=== PATIENT | male | born 1955 | race Caucasian/White ===

== ENCOUNTER 2018-06-09 21:34 | Emergency (ER) | payer SELFPAY ==
[2018-06-09 21:50] VITALS: O2SAT 97
[2018-06-09] MEDS ORDERED: Adacel Vial IM ONE ×2 (22:07→22:23)
[2018-06-09] MEDS ORDERED: Vancomycin 1GM/ Ns 250ML*** 1 GM/250 ML IVPB IV ONE (22:08)
[2018-06-09] MEDS ORDERED: Sodium Chloride 0.9% 1000 ML 1,000 ML IV SCH (22:15)
--- NOTE | 2018-06-09 22:15 | ERPHSYRPT ---
- History of Present Illness Time Seen by Provider: 06/09/18 22:04 Source: patient Exam Limitations: clinical condition Patient Subjective Stated Complaint: left hand swollen believed to have had a splinter in it Triage Nursing Assessment: Pt stated that he had been doing a remodel on a home and thinks he got a splinter or piece of plastic in his left pointer finger, finger and hand is now swollen and red, denies fever, painful with touch, doesn' t appear to be in any distress Physician History: PATIENT WITH A HISTORY OF HYPERTENSION, WHILE REMODELING HIS HOME SUSTAINED A PUNCTURE TO HIS LEFT INDEX FINGER, NO HAS INCREASING SWELLING, REDNESS OF LEFT INDEX FINGER, HAND EXTENDING TO LEFT WRIST. DENIES FEVER CHILLS. Occurred: days ago Method of Injury: other (PUNCTURE WOUND) Quality: aching Severity of Pain-Max: mild Severity of Pain-Current: mild Extremities Pain Location: wrist: left, hand: left, 2nd finger: left Modifying Factors: Improves With: nothing Associated Symptoms: none Allergies/Adverse Reactions: Penicillins Allergy (Verified 06/09/18 21:50) Home Medications: Ascorbic Acid 500 mg [Vitamin C 500 MG] 500 mg PO DAILY 06/09/18 [History] Cholecalciferol (Vitamin D3) [Vitamin D3] 2,000 unit PO DAILY 06/09/18 [History] Cyanocobalamin 100 Mcg [Vitamin B-12 100 Mcg] 100 mcg PO DAILY 06/09/18 [ History] Lisinopril 20 mg [Zestril 20 MG] 20 mg PO DAILY 06/09/18 [History] Lisinopril/Hydrochlorothiazide [Lisinopril-Hctz 10-12.5 mg Tab] 1 each PO DAILY 06/09/18 [History] Omeprazole 20 MG [Prilosec 20 mg] 20 mg PO DAILY 06/09/18 [History] Hx Tetanus, Diphtheria Vaccination/Date Given: No (unknown) - Review of Systems Constitutional: No Fever, No Chills Respiratory: No Cough, No Dyspnea Cardiac: No Chest Pain, No Edema, No Syncope Abdominal/Gastrointestinal: No Abdominal Pain, No Nausea, No Vomiting, No Diarrhea Genitourinary Symptoms: No Dysuria Musculoskeletal: Joint Redness, Joint Pain, Joint Swelling, No Back Pain, No Neck Pain Skin: Cellulitis, No Rash Neurological: No Dizziness, No Focal Weakness, No Sensory Changes Psychological: No Symptoms Endocrine: No Symptoms All Other Systems: Reviewed and Negative - Past Medical History Pertinent Past Medical History: Yes Cardiac History: Hypertension - Past Surgical History Past Surgical History: No - Social History Smoking Status: Never smoker Exposure to second hand smoke: No Drug Use: none Patient Lives Alone: No - Nursing Vital Signs Nursing Vital Signs: Initial Vital Signs Temperature 97.3 F 06/09/18 21:40 Pulse Rate 83 06/09/18 21:40 Blood Pressure 165/114 06/09/18 21:40 O2 Sat by Pulse Oximetry 97 06/09/18 21:40 Pain Scale Pain Intensity 3 - Physical Exam General Appearance: alert Hand Exam: infection (THERE IS A 1MM PUNCTURE HEALED WOUND MID PROXIMAL PHALANGX OF LEFT INDEX FINGER RADIAL ASPECT.), soft tissue tenderness, stiffness , swelling (SWELLING WITH ERYTHEMA LEFT INDEX FINGER DISTAL 3RD MIDDLE PHALANGX EXTENDS PROXIMAL TO WRIST, MARKED SWELLING LEFT HAND DORSUM PROXIMAL 1ST TO 3RD METACARPALS TO MCP JOINTS, MARKEDLY WARMTH, LEFT RADIAL PULSE 2+) DTR - Upper Extremity Exam: bicep (R): 2+, bicep (L): 2+, tricep (R): 2+, tricep (L): 2+ Neuro/Tendon Exam: normal sensation Mental Status Exam: alert, oriented x 3 SpO2 Interpretation: normal SpO2: 97 - Radiology Exams Left Hand X-ray Interpretation: Interpreted by me (SOFT TISSUE SWELLING WITHOUT EVIDENCE OF RADIO-OPAQUE FOREIGN BODY) Ordered Tests: Active Orders 24 hr Category Date Time Status IV Insertion STAT Care 06/09/18 22:19 Active HAND (MINIMUM 3 VIEWS) Stat Exams 06/09/18 22:25 Taken BLOOD CULTURE Stat Lab 06/09/18 22:30 Received BMP Stat Lab 06/09/18 22:15 Completed CBC W DIFF Stat Lab 06/09/18 22:15 Completed Medication Summary Generic Name Dose Route Start Last Admin Trade Name Freq PRN Reason Stop Dose Admin Sodium Chloride 1,000 mls @ 50 mls/hr 06/09/18 22:15 06/09/18 22:38 Sodium Chloride 0.9% 1000 Ml IV 07/09/18 22:14 50 mls/hr .Q20H SONA Administration Discontinued Medications Generic Name Dose Route Start Last Admin Trade Name Freq PRN Reason Stop Dose Admin Diphtheria/Tetanus/Acell Pertussis 0.5 ml 06/09/18 22:07 06/09/18 22:35 Adacel Vial IM 06/09/18 22:08 0.5 ml .ONCE ONE Administration Diphtheria/Tetanus/Acell Pertussis Confirm 06/09/18 22:23 Adacel Vial Administered 06/09/18 22:24 Dose 0.5 ml IM .STK-MED ONE Vancomycin HCl 1 gm in 250 mls @ 167 mls/hr 06/09/18 22:08 06/09/18 22:39 Vancomycin 1gm/ Ns 250ml IV 06/09/18 23:37 167 mls/hr STAT ONE Administration Vancomycin HCl Confirm 06/09/18 22:23 Vancomycin 1gm/ Ns 250ml Administered 06/09/18 22:24 Dose 250 mls @ ud IV .STK-MED ONE Lab/Rad Data: Laboratory Result Diagrams 06/09/18 22:15 06/09/18 22:15 Laboratory Results 06/09/18 06/09/18 Range/Units 22:15 22:15 WBC 10.9 H (4.0-10.5) K/mm3 RBC 4.98 (4.1-5.6) M/mm3 Hgb 15.2 (12.5-18.0) gm/dl Hct 43.1 (42-50) % MCV 86.5 (78-100) fl MCH 30.5 (26-32) pg MCHC 35.3 (32-36) g/dl RDW 13.4 (11.5-14.0) % Plt Count 189 (150-450) K/mm3 MPV 11.4 H (6-9.5) fl Gran % 66.1 H (36.0-66.0) % Eos # (Auto) 0.50 (0-0.5) Absolute Lymphs (auto) 2.34 (1.0-4.6) Absolute Monos (auto) 0.82 (0.0-1.3) Lymphocytes % 21.5 L (24.0-44.0) % Monocytes % 7.5 (0.0-12.0) % Eosinophils % 4.6 (0.00-5.0) % Basophils % 0.3 (0.0-0.4) % Absolute Granulocytes 7.21 H (1.4-6.9) Basophils # 0.03 (0-0.4) Sodium 141 (137-145) mmol/L Potassium 3.5 (3.5-5.1) mmol/L Chloride 101 (98-107) mmol/L Carbon Dioxide 31 H (22-30) mmol/L Anion Gap 12.9 (5-15) MEQ/L BUN 22 H (9-20) mg/dL Creatinine 1.03 (0.66-1.25) mg/dL Estimated GFR > 60.0 ML/MIN Glucose 119 H (74-106) mg/dL Calcium 9.9 (8.4-10.2) mg/dL - Progress Progress Note: 06/09/18 22:17 ADMINISTERED T-DAP 0.5ML IM, AFTER 2 SETS OF BLOOD CULTURES IV NORMAL SALINE 50ML/HR, VANCOMYCIN 1GM IVPB Counseled pt/family regarding: lab results, diagnosis, need for follow-up, rad results - Departure Time of Disposition: 00:15 Departure Disposition: Home Clinical Impression: CELLULITIS LEFT HAND Condition: Stable Critical Care Time: No Referrals: DOCTOR,NO FAMILY [Primary Care Provider] - Additional Instructions: MAINTAIN LEFT FOREARM SPLINT UNTIL EVALUATED BY ORTHOPEDIC OR HAND SURGEON NEXT WEEK. ELEVATE HAND WHILE SITTING OR SUPINE POSITION. ANTIBIOTIC CLINDAYMCIN 300MG EVERY 6 HOURS FOR 10 DAYS. NORCO 10/325 EVERY 6 HOURS FOR PAIN. WATCH FOR INCREASING SIGNS OF INFECTION, RED STREAKS ACROSS FOREARM TO ELBOW, ONSET OF FEVER, CHILLS AND INCREASING PAIN DISCOMFORT. CONSULT THE [facility] AT [address], , CALL OFFICE FOR APPOINTMENT IN [address] ALONSO ORTHOPEDIC SURGEON . OBTAIN A PRIMARY CARE PROVIDER FOR EVALUATION OF WOUND. RETURN TO EMERGENCY ROOM FOR PROBLEMS. HAVE THE SPLINT REMOVED AFTER 4 DAYS. Prescriptions: Hydrocodone/APAP 10/325 mg [[place] 10/325 MG Tablet] 1 tab PO Q4H PRN PRN # 15 tablet MDD 4 PRN Reason: Pain Clindamycin HCl 300 mg PO QID #40 capsule
[2018-06-09] MEDS ORDERED: Sodium Chloride 0.9% 1000 ML 1,000 ML ONE (22:22)
[2018-06-09] MEDS ORDERED: Vancomycin 1GM/ Ns 250ML*** 250 ML IV ONE (22:23)
[2018-06-09 22:32] LABS: BASOPHIL % 0.3 % (0.0-0.4); Basophil (Absolute #) 0.03 (0-0.4); Eosinophil % 4.6 % (0.00-5.0); Granulocyte Absolute (ANC) 7.21 (1.4-6.9); Granulocytes % 66.1 % (36.0-66.0); Hematocrit 43.1 % (42-50); Hemoglobin 15.2 gm/dl (12.5-18.0); Lymphocyte (Absolute #) 2.34 (1.0-4.6); Lymphocytes % 21.5 % (24.0-44.0); Mean Cell Volume 86.5 fl (78-100); Mean Corpuscular Hemoglobin 30.5 pg (26-32); Mean Corpuscular Hgb Concent. 35.3 g/dl (32-36); Mean Platelet Volume 11.4 fl (6-9.5); Monocyte (Absolute #) 0.82 (0.0-1.3); Monocytes % 7.5 % (0.0-12.0); Platelet Count 189 K/mm3 (150-450); Red Blood Count 4.98 M/mm3 (4.1-5.6); Red Cell Distribution Width 13.4 % (11.5-14.0); White Blood Count 10.9 K/mm3 (4.0-10.5)
[2018-06-09 22:46] LABS: ANION GAP 12.9 MEQ/L (5-15); BLOOD UREA NITROGEN 22 mg/dL (9-20); CHLORIDE 101 mmol/L (98-107); Calcium 9.9 mg/dL (8.4-10.2); Carbon Dioxide 31 mmol/L (22-30); Creatinine 1 1.03 mg/dL (0.66-1.25); Glucose 119 mg/dL (74-106); Potassium 3.5 mmol/L (3.5-5.1); SODIUM 141 mmol/L (137-145)
[2018-06-10] MEDS ORDERED: Norco 10/325 MG Tablet PO ONE (00:29)
[2018-06-10] MEDS ORDERED: Norco 10/325 MG Tablet ONE (00:30)
[2018-06-10 00:42] VITALS: BP 155/106; PULSE 80
--- NOTE | 2018-06-10 07:23 | XRAY ---
Indication: Pain and swelling. Possible 2nd finger foreign body. Comparison: None 3 views of the left hand demonstrates 2nd finger soft tissue swelling without radiopaque foreign body. No other bony, articular, or soft tissue abnormalities.
== END 2018-06-10 00:43 | disposition home or self-care (01) ==
LOC: ED 21:34
DX: L03.114 Cellulitis of left upper limb (principal); Z79.899 Other long term (current) drug therapy
CPT/HCPCS: 36000; 36415; 73130; 80048; 85025; 87040; 90471; 90715; 96360; 96361; 99284; J3370; A9270-GY

== ENCOUNTER 2022-08-27 16:19 | Observation (INO) | payer MEDICARE, OTHER ==
[2022-08-27] MEDS ORDERED: MORPHINE SULFATE 2 MG INJ IV ONE (17:00)
[2022-08-27] MEDS ORDERED: BABY ASPIRIN 81 MG CHEW PO ONE (17:00)
[2022-08-27] MEDS ORDERED: Zofran 4 MG/2 ML VIAL IV ONE (17:00)
[2022-08-27 17:06] LABS: Absolute Neutrophil Ct (ANC) 5.05 x10^3/uL (1.4-6.9); Basophil (Absolute #) 0.04 x10^3/uL (0-0.4); Eosinophil % 2.9 % (0.00-5.0); Eosinophil (Absolute #) 0.22 x10^3/uL (0-0.5); Hematocrit 43.7 % (42-50); Hemoglobin 14.8 g/dL (12.5-18.0); Lymphocytes % 23.8 % (24.0-44.0); Mean Cell Volume 88.3 fL (78-100); Mean Corpuscular Hemoglobin 29.9 pg (26-32); Mean Corpuscular Hgb Concent. 33.9 g/dL (32-36); Mean Platelet Volume 11.1 fL (7.5-11.0); Monocyte (Absolute #) 0.45 x10^3/uL (0.0-1.3); Monocytes % 5.9 % (0.0-12.0); Neutrophil % 66.8 % (36.0-66.0); Platelet Count 219 x10^3/uL (150-450); Red Blood Count 4.95 x10^6/uL (4.1-5.6); Red Cell Distribution Width 12.6 % (11.5-14.0); White Blood Count 7.6 x10^3/uL (4.0-10.5)
[2022-08-27] MEDS ORDERED: BABY ASPIRIN 81 MG CHEW ONE (17:14)
[2022-08-27] MEDS ORDERED: Zofran 4 MG/2 ML VIAL ONE (17:14)
[2022-08-27] MEDS ORDERED: MORPHINE SULFATE 2 MG INJ ONE (17:14)
[2022-08-27 17:26] LABS: ALBUMIN 4.5 g/dL (3.5-5.0); ALKALINE PHOSPHATASE 82 U/L (38-126); ANION GAP 7.5 MEQ/L (5-15); BLOOD UREA NITROGEN 18 mg/dL (9-20); CHLORIDE 104 mmol/L (98-107); CK-Creatinine Phosphokinase 92 U/L (55-170); Calcium 9.6 mg/dL (8.4-10.2); Carbon Dioxide 30 mmol/L (22-30); Creatinine 1 0.92 mg/dL (0.66-1.25); EST GLOMERULAR FILTRATION RATE > 60.0 ML/MIN; Glucose 109 mg/dL (74-106); NT PRO BNP 112 pg/mL (0-900); Potassium 3.5 mmol/L (3.5-5.1); SGOT/AST 22 U/L (17-59); SGPT/ALT 21 U/L (0-50); SODIUM 138 mmol/L (137-145); TROPONIN < 0.012 ng/mL (0.000-0.034); Total Protein 7.6 g/dL (6.3-8.2)
--- NOTE | 2022-08-27 17:26 | ERPHSYRPT ---
- History of Present Illness Time Seen by Provider: 08/27/22 16:33 Historian: patient Exam Limitations: no limitations Patient Subjective Stated Complaint: PT HERE FOR CHEST PRESSURE OFF AND ON FOR 2 WEEKS NOW, STATES WAS LOADING WINDOWS TODAY AND PAIN GOT WORSE, NO COUGH, OR FEVER, Triage Nursing Assessment: PT ALERT, WALKED IN, RESP EASY, SKIN W/D/P.FACE MASK IN PLACE, NO EDEMA NOTED, CHEST CLEAR Physician History: 66-year-old male with history of hypertension, GERD presented in the ER with chief complaint of substernal chest pressure off and on for 2 weeks with progressive worsening especially with exertion. Patient reports he gets short winded with couple of flight of stairs which he never had this problem before. Denies any cough congestion or sick contact. Reports having cardiac cath done almost 10 years ago which was negative. Denies tobacco use. Timing/Duration: week(s) (2), intermittent, worse Activities at Onset: activity Quality: dullness, pressure Location: substernal Chest Pain Radiation: no radiation Severity of Pain-Max: moderate Severity of Pain-Current: moderate Modifying Factors: Worsens With: exertion, movement Associated Symptoms: shortness of breath Prior Chest Pain/Cardiac Workup: no prior chest pain Nitro Today/Relief: no nitro taken today Aspirin Treatment Today: no aspirin today Allergies/Adverse Reactions: Penicillins Allergy (Verified 08/27/22 16:26) Home Medications: Ascorbic Acid 500 mg [Vitamin C 500 MG] 1,000 mg PO DAILY 06/09/18 [History] Cholecalciferol (Vitamin D3) [Vitamin D3] 5,000 unit PO DAILY 06/09/18 [History] Lisinopril 20 mg [Zestril 20 MG] 40 mg PO DAILY 06/09/18 [History] Omeprazole 20 MG [Prilosec 20 mg] 20 mg PO DAILY 06/09/18 [History] Hx Tetanus, Diphtheria Vaccination/Date Given: No (unknown) Hx Influenza Vaccination/Date Given: No Hx Pneumococcal Vaccination/Date Given: No Immunizations Up to Date: Yes Travel Risk - International Travel Have you traveled outside of the country in past 3 weeks: No - Coronavirus Screening Are you exhibiting any of the following symptoms?: No - Vaccine Status Have you recieved a Covid-19 vaccination: No - Review of Systems Constitutional: No Symptoms Eyes: No Symptoms Ears, Nose, & Throat: No Symptoms Respiratory: Dyspnea on Exertion (CEBALLOS) Cardiac: Chest Pain Abdominal/Gastrointestinal: No Symptoms Genitourinary Symptoms: No Symptoms Musculoskeletal: No Symptoms Skin: No Symptoms Neurological: No Symptoms Psychological: No Symptoms Endocrine: No Symptoms Hematologic/Lymphatic: No Symptoms Immunological/Allergic: No Symptoms - Past Medical History Pertinent Past Medical History: Yes Cardiac History: Hypertension - Past Surgical History Past Surgical History: No - Social History Smoking Status: Never smoker Exposure to second hand smoke: No Drug Use: none Patient Lives Alone: No - Nursing Vital Signs Nursing Vital Signs: Initial Vital Signs Temperature 97.2 F 08/27/22 16:31 Pulse Rate 77 08/27/22 16:31 Respiratory Rate 18 08/27/22 16:31 Blood Pressure 145/93 08/27/22 16:31 O2 Sat by Pulse Oximetry 99 08/27/22 16:31 Pain Scale Pain Intensity 4 - Physical Exam General Appearance: no apparent distress, alert Eye Exam: PERRL/EOMI Ears, Nose, Throat Exam: normal ENT inspection Neck Exam: normal inspection, full range of motion Respiratory Exam: normal breath sounds, lungs clear Cardiovascular Exam: regular rate/rhythm, normal heart sounds Gastrointestinal/Abdomen Exam: soft, No tenderness Back Exam: normal inspection, normal range of motion Extremity Exam: normal inspection, normal range of motion Neurologic Exam: alert, oriented x 3, cooperative Skin Exam: normal color SpO2 Interpretation: normal SpO2: 99 O2 Delivery: Room Air - Course EKG Interpreted by Me: RATE (77), Sinus Rhythm, NORMAL AXIS, Right Bundle Branch Block, Non-specific ST Changes Ordered Tests: Active Orders 24 hr Category Date Time Status Vp Account Director STAT Care 08/27/22 17:00 Active EKG-ER Only STAT Care 08/27/22 17:00 Active IV Insertion STAT Care 08/27/22 17:00 Active CHEST 1 VIEW (PORTABLE) Stat Exams 08/27/22 18:13 Completed CBC W DIFF Stat Lab 08/27/22 17:04 Completed CK-Creatinine Phosphokinase Stat Lab 08/27/22 17:04 Completed CMP Stat Lab 08/27/22 17:04 Completed NT PRO BNP Stat Lab 08/27/22 17:04 Completed TROPONIN Q4H Lab 08/28/22 01:00 Ordered TROPONIN Q4H Lab 08/27/22 17:04 Completed TROPONIN Q4H Lab 08/27/22 21:00 Ordered Medication Summary Discontinued Medications Generic Name Dose Route Start Last Admin Trade Name Heather PRN Reason Stop Dose Admin Aspirin 324 mg 08/27/22 17:00 08/27/22 17:16 Aspirin 81 Mg Tab.Chew PO 08/27/22 17:01 324 mg STAT ONE Administration Aspirin Confirm 08/27/22 17:14 Aspirin 81 Mg Tab.Chew Administered 08/27/22 17:15 Dose 324 mg .ROUTE .STK-MED ONE Morphine Sulfate 2 mg 08/27/22 17:00 08/27/22 17:16 Morphine Sulfate 2 Mg/Ml Inj IV 08/27/22 17:01 2 mg STAT ONE Administration Morphine Sulfate Confirm 08/27/22 17:14 Morphine Sulfate 2 Mg/Ml Inj Administered 08/27/22 17:15 Dose 2 mg .ROUTE .STK-MED ONE Nitroglycerin 1 gm 08/27/22 18:58 08/27/22 19:03 Nitroglycerin 1 Gm Packet TOP 08/27/22 18:59 1 gm STAT ONE Administration Nitroglycerin Confirm 08/27/22 19:03 Nitroglycerin 1 Gm Packet Administered 08/27/22 19:04 Dose 1 gm .ROUTE .STK-MED ONE Ondansetron HCl 4 mg 08/27/22 17:00 08/27/22 17:16 Ondansetron Hcl 4 Mg/2 Ml Vial IV 08/27/22 17:01 4 mg STAT ONE Administration Ondansetron HCl Confirm 08/27/22 17:14 Ondansetron Hcl 4 Mg/2 Ml Vial Administered 08/27/22 17:15 Dose 4 mg .ROUTE .STK-MED ONE Lab/Rad Data: Laboratory Result Diagrams 08/27/22 17:04 08/27/22 17:04 Laboratory Results 08/27/22 08/27/22 Range/Units 17:04 17:04 WBC 7.6 (4.0-10.5) x10^3/uL RBC 4.95 (4.1-5.6) x10^6/uL Hgb 14.8 (12.5-18.0) g/dL Hct 43.7 (42-50) % MCV 88.3 (78-100) fL MCH 29.9 (26-32) pg MCHC 33.9 (32-36) g/dL RDW 12.6 (11.5-14.0) % Plt Count 219 (150-450) x10^3/uL MPV 11.1 H (7.5-11.0) fL Gran % 66.8 H (36.0-66.0) % Immature Gran % (Auto) 0.1 (0.00-0.4) % Nucleat RBC Rel Count 0.0 (0.00-0.1) % Eos # (Auto) 0.22 (0-0.5) x10^3/uL Immature Gran # (Auto) 0.01 (0.00-0.03) x10^3u/L Absolute Lymphs (auto) 1.80 (1.0-4.6) x10^3/uL Absolute Monos (auto) 0.45 (0.0-1.3) x10^3/uL Absolute Nucleated RBC 0.00 (0.00-0.01) x10^3u/L Lymphocytes % 23.8 L (24.0-44.0) % Monocytes % 5.9 (0.0-12.0) % Eosinophils % 2.9 (0.00-5.0) % Basophils % 0.5 (0.0-0.4) % Absolute Granulocytes 5.05 (1.4-6.9) x10^3/uL Basophils # 0.04 (0-0.4) x10^3/uL Sodium 138 (137-145) mmol/L Potassium 3.5 (3.5-5.1) mmol/L Chloride 104 (98-107) mmol/L Carbon Dioxide 30 (22-30) mmol/L Anion Gap 7.5 (5-15) MEQ/L BUN 18 (9-20) mg/dL Creatinine 0.92 (0.66-1.25) mg/dL Estimated GFR > 60.0 ML/MIN Glucose 109 H (74-106) mg/dL Calcium 9.6 (8.4-10.2) mg/dL Total Bilirubin 1.60 H (0.2-1.3) mg/dL AST 22 (17-59) U/L ALT 21 (0-50) U/L Alkaline Phosphatase 82 (38-126) U/L Creatine Kinase 92 (55-170) U/L Troponin I < 0.012 (0.000-0.034) ng/mL NT-Pro-B Natriuret Pep 112 (0-900) pg/mL Serum Total Protein 7.6 (6.3-8.2) g/dL Albumin 4.5 (3.5-5.0) g/dL - Progress Progress: improved Air Movement: good Progress Note: 08/27/22 19:08 66-year-old is evaluated for intermittent chest pressure. Given morphine and aspirin, on reevaluation still have pressure on the left side. EKG showed normal sinus rhythm with right bundle branch block but no ST elevation and negative troponins. Chest x-ray negative for any acute cardiopulmonary findings reviewed by me, official report is pending. Patient does not have any cardiac work-up done in the recent past. Discussed with Dr. Howe and patient is being admitted for observation to rule out ACS. Blood Culture(s) Obtained: No Antibiotics given: No Discussed with : Bill Counseled pt/family regarding: lab results, diagnosis, need for follow-up, rad results - Departure Departure Disposition: Observation Clinical Impression: Chest pain, rule out acute myocardial infarction Condition: Stable Critical Care Time: No Referrals: BENITO BOOTH [Primary Care Provider] - Follow up/PCP as directed
--- NOTE | 2022-08-27 18:22 | XRAY ---
Indication: Chest pain. Comparison: None Portable chest inflated with minimal left base fibrosis/scarring. No focal infiltrate, consolidation, or large effusion. Heart not enlarged with incidental tiny right hilar calcified nodes. Bony thorax intact. Impression: Nonacute chest with chronic features.
[2022-08-27] MEDS ORDERED: NITRO-BID 2% UD PACKETS TOP ONE (18:58)
[2022-08-27] MEDS ORDERED: NITRO-BID 2% UD PACKETS ONE (19:03)
[2022-08-27 19:58] LABS: INFLUENZA A NEGATIVE (NEGATIVE); INFLUENZA B NEGATIVE (NEGATIVE); RESPIRATORY SYNCTIAL VIRUS NEGATIVE (Negative); SARS-CoV-2 Xpert Express NEGATIVE (NEGATIVE)
[2022-08-27] MEDS ORDERED: MORPHINE SULFATE 2 MG INJ IV PRN (20:41)
[2022-08-27] MEDS ORDERED: TYLENOL 325 MG PO PRN (20:41)
[2022-08-27] MEDS ORDERED: DUONEB 0.5-3 MG/3 ml Neb IH PRN (20:41)
[2022-08-27] MEDS ORDERED: Zofran 4 MG/2 ML VIAL IV PRN (20:41)
[2022-08-28 05:41] LABS: Absolute Neutrophil Ct (ANC) 5.74 x10^3/uL (1.4-6.9); Basophil (Absolute #) 0.04 x10^3/uL (0-0.4); Eosinophil % 4.4 % (0.00-5.0); Hematocrit 40.4 % (42-50); Hemoglobin 13.7 g/dL (12.5-18.0); Lymphocyte (Absolute #) 2.17 x10^3/uL (1.0-4.6); Lymphocytes % 24.1 % (24.0-44.0); Mean Cell Volume 87.6 fL (78-100); Mean Corpuscular Hemoglobin 29.7 pg (26-32); Mean Corpuscular Hgb Concent. 33.9 g/dL (32-36); Mean Platelet Volume 11.3 fL (7.5-11.0); Monocyte (Absolute #) 0.64 x10^3/uL (0.0-1.3); Monocytes % 7.1 % (0.0-12.0); Neutrophil % 63.8 % (36.0-66.0); Platelet Count 210 x10^3/uL (150-450); Red Blood Count 4.61 x10^6/uL (4.1-5.6); Red Cell Distribution Width 12.9 % (11.5-14.0)
[2022-08-28 06:04] LABS: ALBUMIN 3.8 g/dL (3.5-5.0); ALKALINE PHOSPHATASE 81 U/L (38-126); ANION GAP 8.7 MEQ/L (5-15); BLOOD UREA NITROGEN 21 mg/dL (9-20); CHLORIDE 105 mmol/L (98-107); Calcium 9.2 mg/dL (8.4-10.2); Carbon Dioxide 28 mmol/L (22-30); Creatinine 1 0.99 mg/dL (0.66-1.25); EST GLOMERULAR FILTRATION RATE > 60.0 ML/MIN; Glucose 103 mg/dL (74-106); Potassium 3.4 mmol/L (3.5-5.1); SGOT/AST 20 U/L (17-59); SGPT/ALT 18 U/L (0-50); SODIUM 138 mmol/L (137-145); Total Protein 6.6 g/dL (6.3-8.2)
[2022-08-28] MEDS ORDERED: Zestril 20 MG PO SCH (10:00)
[2022-08-28] MEDS ORDERED: PROTONIX 40 MG IV IV SCH (10:00)
[2022-08-28] MEDS ORDERED: NON-FORMULARY ITEM (Omeprazole 20 Mg [Prilosec 20 Mg] 20 MG Capsule.Dr) PO SCH (10:00)
[2022-08-28] MEDS ORDERED: Protonix 40MG Tablet PO SCH (10:00)
--- NOTE | 2022-08-28 12:12 | PCM.SSS ---
History of Present Illness - Chief Complaint Chief Complaint: Chest pain rule out acute [place] History of Present Illness: is a 66 year old male pt of mine from [facility] with PMHx HTn and GERD who came to ER [facility] CP. C/o pressure x 2 weeks, intermittently. Years ago had similar issues was given prilosec and it worked well, has been on generic PPI since then. 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 His troponins have been neg x 3. EKG nonacute with RBBB. About 1 mo ago, noticed when sat down in evening had heaviness in L chest rad to mid chest 3-02/04. He felt good in the mornings. For about a week, had a little SOB. Five days ago went to [facility], took 3 flights of stairs and felt a bit winded. Yesterday took 3 windows off a shelf, weighing 25-30 lb each, and loaded them on a cart, with little sob. No palpitations, occ cough. No nausea, no diaphoresis. Had a little feeling of heartburn this morning. Father had CABG x2 at age 55. Brother had [place] age 46, and sister [place] age 45. F did live to 80 yo. Mother carotid artery stenosis (not requiring procedure) and lived to 90. - Review of Systems Respiratory: Cough, Short Of Breath Cardiac: Chest Pain All Other Systems: Reviewed and Negative Medications & Allergies Home Medications: Home Medication List Ascorbic Acid 500 mg [Vitamin C 500 MG] 1,000 mg PO DAILY 06/09/18 [History Confirmed 08/27/22] Cholecalciferol (Vitamin D3) [Vitamin D3] 5,000 unit PO DAILY 06/09/18 [History Confirmed 08/27/22] Lisinopril 20 mg [Zestril 20 MG] 40 mg PO DAILY 06/09/18 [History Confirmed 08/27/22] Nitroglycerin 0.4 mg Tablet [Nitrostat 0.4 MG Tablet] 0.4 mg SL DAILY PRN #25 tab 08/28/22 [Rx] Omeprazole 40 mg PO DAILY 30 Days #30 cap 08/28/22 [Rx] PANTOPRAZOLE 40 mg Tablet [Protonix 40MG Tablet] 40 mg PO DAILY tablet 08/28/22 [Rx] Allergies/Adverse Reactions: Allergies Allergy/AdvReac Type Severity Reaction Status Date / Time Penicillins Allergy Verified 08/27/22 16:26 - Past Medical History Past Medical History: Yes ENT History: No Pertinent History Cardiac History: Hypertension Respiratory History: No Pertinent History Endocrine Medical History: No Pertinent History Musculoskelatal History: No Pertinent History GI Medical History: GERD History: No Pertinent History Pyscho-Social History: No Pertinent History Male Reproductive Disorders: No Pertinent History - Past Surgical History Past Surgical History: No Cardiac History: No Pertinent History Respiratory Surgery: No Pertinent History GI Surgical History: No Pertinent History Genitourinary Surgical Hx: No Pertinent History Musculskeletal Surgical Hx: No Pertinent History Male Surgical History: No Pertinent History - Social History Smoking Status: Never smoker Exposure to second hand smoke: No Alcohol: None Drug Use: none - Physical Exam Vital Signs: Vital Signs - 24 hr Temp Pulse Pulse Resp BP Pulse Ox 08/28/22 07:56 97.9 F 56 L 17 109/72 94 L 08/28/22 04:00 98.0 F 57 L 16 105/65 96 08/27/22 23:53 97.7 F 61 18 105/68 96 08/27/22 20:59 69 18 95 08/27/22 20:57 98.1 F 68 16 129/87 98 08/27/22 20:00 66 15 139/98 99 08/27/22 19:10 99 08/27/22 19:00 64 16 143/102 97 08/27/22 18:09 78 17 144/103 97 08/27/22 17:22 81 18 143/96 98 08/27/22 17:12 70 08/27/22 16:31 97.2 F 77 18 145/93 99 General Appearance: no apparent distress, alert Neurologic Exam: oriented x 3, cooperative Eye Exam: eyes nml inspection Ears, Nose, Throat Exam: moist mucous membranes Neck Exam: normal inspection, non-tender, No lymphadenopathy, No thyromegaly Respiratory Exam: normal breath sounds, lungs clear, No crackles/rales, No rhonchi, No wheezing Cardiovascular Exam: regular rate/rhythm, normal heart sounds, No murmur Gastrointestinal/Abdomen Exam: soft, normal bowel sounds, No tenderness, No distention, No mass, No guarding, No rebound Back Exam: normal inspection, No rash Extremity Exam: normal inspection, No pedal edema, No swelling Skin Exam: normal color, warm, dry, No rash Results - Labs Lab/Micro Results: Lab Results-Last 24 Hours 08/27/22 08/27/22 08/27/22 Range/Units 17:04 17:04 19:20 WBC 7.6 (4.0-10.5) x10^3/uL RBC 4.95 (4.1-5.6) x10^6/uL Hgb 14.8 (12.5-18.0) g/dL Hct 43.7 (42-50) % MCV 88.3 (78-100) fL MCH 29.9 (26-32) pg MCHC 33.9 (32-36) g/dL RDW 12.6 (11.5-14.0) % Plt Count 219 (150-450) x10^3/uL MPV 11.1 H (7.5-11.0) fL Gran % 66.8 H (36.0-66.0) % Immature Gran % (Auto) 0.1 (0.00-0.4) % Nucleat RBC Rel Count 0.0 (0.00-0.1) % Eos # (Auto) 0.22 (0-0.5) x10^3/uL Immature Gran # (Auto) 0.01 (0.00-0.03) x10^3u/L Absolute Lymphs (auto) 1.80 (1.0-4.6) x10^3/uL Absolute Monos (auto) 0.45 (0.0-1.3) x10^3/uL Absolute Nucleated RBC 0.00 (0.00-0.01) x10^3u/L Lymphocytes % 23.8 L (24.0-44.0) % Monocytes % 5.9 (0.0-12.0) % Eosinophils % 2.9 (0.00-5.0) % Basophils % 0.5 (0.0-0.4) % Absolute Granulocytes 5.05 (1.4-6.9) x10^3/uL Basophils # 0.04 (0-0.4) x10^3/uL Sodium 138 (137-145) mmol/L Potassium 3.5 (3.5-5.1) mmol/L Chloride 104 (98-107) mmol/L Carbon Dioxide 30 (22-30) mmol/L Anion Gap 7.5 (5-15) MEQ/L BUN 18 (9-20) mg/dL Creatinine 0.92 (0.66-1.25) mg/dL Estimated GFR > 60.0 ML/MIN Glucose 109 H (74-106) mg/dL Calcium 9.6 (8.4-10.2) mg/dL Total Bilirubin 1.60 H (0.2-1.3) mg/dL AST 22 (17-59) U/L ALT 21 (0-50) U/L Alkaline Phosphatase 82 (38-126) U/L Creatine Kinase 92 (55-170) U/L Troponin I < 0.012 (0.000-0.034) ng/mL NT-Pro-B Natriuret Pep 112 (0-900) pg/mL Serum Total Protein 7.6 (6.3-8.2) g/dL Albumin 4.5 (3.5-5.0) g/dL Influenza Type A Ag NEGATIVE (NEGATIVE) Influenza Type B Ag NEGATIVE (NEGATIVE) RSV (PCR) NEGATIVE (Negative) SARS-CoV-2 (PCR) NEGATIVE (NEGATIVE) 08/27/22 08/28/22 08/28/22 Range/Units 21:39 04:40 04:40 WBC (4.0-10.5) x10^3/uL RBC (4.1-5.6) x10^6/uL Hgb (12.5-18.0) g/dL Hct (42-50) % MCV (78-100) fL MCH (26-32) pg MCHC (32-36) g/dL RDW (11.5-14.0) % Plt Count (150-450) x10^3/uL MPV (7.5-11.0) fL Gran % (36.0-66.0) % Immature Gran % (Auto) (0.00-0.4) % Nucleat RBC Rel Count (0.00-0.1) % Eos # (Auto) (0-0.5) x10^3/uL Immature Gran # (Auto) (0.00-0.03) x10^3u/L Absolute Lymphs (auto) (1.0-4.6) x10^3/uL Absolute Monos (auto) (0.0-1.3) x10^3/uL Absolute Nucleated RBC (0.00-0.01) x10^3u/L Lymphocytes % (24.0-44.0) % Monocytes % (0.0-12.0) % Eosinophils % (0.00-5.0) % Basophils % (0.0-0.4) % Absolute Granulocytes (1.4-6.9) x10^3/uL Basophils # (0-0.4) x10^3/uL Sodium 138 (137-145) mmol/L Potassium 3.4 L (3.5-5.1) mmol/L Chloride 105 (98-107) mmol/L Carbon Dioxide 28 (22-30) mmol/L Anion Gap 8.7 (5-15) MEQ/L BUN 21 H (9-20) mg/dL Creatinine 0.99 (0.66-1.25) mg/dL Estimated GFR > 60.0 ML/MIN Glucose 103 (74-106) mg/dL Calcium 9.2 (8.4-10.2) mg/dL Total Bilirubin 1.20 (0.2-1.3) mg/dL AST 20 (17-59) U/L ALT 18 (0-50) U/L Alkaline Phosphatase 81 (38-126) U/L Creatine Kinase (55-170) U/L Troponin I 0.013 < 0.012 (0.000-0.034) ng/mL NT-Pro-B Natriuret Pep (0-900) pg/mL Serum Total Protein 6.6 (6.3-8.2) g/dL Albumin 3.8 (3.5-5.0) g/dL Influenza Type A Ag (NEGATIVE) Influenza Type B Ag (NEGATIVE) RSV (PCR) (Negative) SARS-CoV-2 (PCR) (NEGATIVE) 08/28/22 Range/Units 05:00 WBC 9.0 (4.0-10.5) x10^3/uL RBC 4.61 (4.1-5.6) x10^6/uL Hgb 13.7 (12.5-18.0) g/dL Hct 40.4 L (42-50) % MCV 87.6 (78-100) fL MCH 29.7 (26-32) pg MCHC 33.9 (32-36) g/dL RDW 12.9 (11.5-14.0) % Plt Count 210 (150-450) x10^3/uL MPV 11.3 H (7.5-11.0) fL Gran % 63.8 (36.0-66.0) % Immature Gran % (Auto) 0.2 (0.00-0.4) % Nucleat RBC Rel Count 0.0 (0.00-0.1) % Eos # (Auto) 0.40 (0-0.5) x10^3/uL Immature Gran # (Auto) 0.02 (0.00-0.03) x10^3u/L Absolute Lymphs (auto) 2.17 (1.0-4.6) x10^3/uL Absolute Monos (auto) 0.64 (0.0-1.3) x10^3/uL Absolute Nucleated RBC 0.00 (0.00-0.01) x10^3u/L Lymphocytes % 24.1 (24.0-44.0) % Monocytes % 7.1 (0.0-12.0) % Eosinophils % 4.4 (0.00-5.0) % Basophils % 0.4 (0.0-0.4) % Absolute Granulocytes 5.74 (1.4-6.9) x10^3/uL Basophils # 0.04 (0-0.4) x10^3/uL Sodium (137-145) mmol/L Potassium (3.5-5.1) mmol/L Chloride (98-107) mmol/L Carbon Dioxide (22-30) mmol/L Anion Gap (5-15) MEQ/L BUN (9-20) mg/dL Creatinine (0.66-1.25) mg/dL Estimated GFR ML/MIN Glucose (74-106) mg/dL Calcium (8.4-10.2) mg/dL Total Bilirubin (0.2-1.3) mg/dL AST (17-59) U/L ALT (0-50) U/L Alkaline Phosphatase (38-126) U/L Creatine Kinase (55-170) U/L Troponin I (0.000-0.034) ng/mL NT-Pro-B Natriuret Pep (0-900) pg/mL Serum Total Protein (6.3-8.2) g/dL Albumin (3.5-5.0) g/dL Influenza Type A Ag (NEGATIVE) Influenza Type B Ag (NEGATIVE) RSV (PCR) (Negative) SARS-CoV-2 (PCR) (NEGATIVE) - Radiology Impressions Radiology Exams & Impressions: Radiology Procedures Category Date Time Status CHEST 1 VIEW (PORTABLE) Stat Exams 08/27/22 18:13 Completed - Other Procedures and Tests Respiratory Therapy 08/27/22 20:59 Respiratory Therapy Assessment DAILY 08/28/22 11:36 EKG ROUTINE Assessment/Plan (1) Chest pain, rule out acute myocardial infarction Current Visit: Yes Status: Acute Assessment & Plan: [place] ruled out. Strong FHx of cardiac disease - will refer to cardiology, and go ahead with treadmill cardiolyte this week. No heavy lifting/work until after stress test is done. Advised also to do calcium score. Code(s): R07.9 - CHEST PAIN, UNSPECIFIED (2) Hypertension Current Visit: No Status: Chronic Qualifiers: Hypertension type: primary hypertension Qualified Code(s): I10 - Essential (primary) hypertension Code(s): I10 - ESSENTIAL (PRIMARY) HYPERTENSION (3) GERD (gastroesophageal reflux disease) Current Visit: Yes Status: Chronic Qualifiers: Esophagitis presence: without esophagitis Qualified Code(s): K21.9 - Gastro-esophageal reflux disease without esophagitis Assessment & Plan: sx could be related - increase ppi. Code(s): K21.9 - GASTRO-ESOPHAGEAL REFLUX DISEASE WITHOUT ESOPHAGITIS Hospital Summary - Hospital Course Hospital Course: Pt is 66 yo male with HTNa nd strong FHx heart dz admitted with chest pain. [place] ruled out. D/c to home, but f/u with stress test and cardiology consult. - Vitals & Intake/Output Vital Signs: Vital Signs Temperature 97.9 F 08/28/22 07:56 Pulse Rate 56 L 08/28/22 07:56 Respiratory Rate 17 08/28/22 07:56 Blood Pressure 109/72 08/28/22 07:56 O2 Sat by Pulse Oximetry 94 L 08/28/22 07:56 Intake & Output: Intake & Output 08/26/22 08/27/22 08/28/2208/29/23 11:59 11:59 11:59 11:59 Intake Total 540 Balance 540 Weight 85.5 kg - Lab Result Diagrams: 08/28/22 05:00 08/28/22 04:40 Lab Results-Last 24 Hrs: Lab Results-Last 24 Hours 08/27/22 08/27/22 08/27/22 Range/Units 17:04 17:04 19:20 WBC 7.6 (4.0-10.5) x10^3/uL RBC 4.95 (4.1-5.6) x10^6/uL Hgb 14.8 (12.5-18.0) g/dL Hct 43.7 (42-50) % MCV 88.3 (78-100) fL MCH 29.9 (26-32) pg MCHC 33.9 (32-36) g/dL RDW 12.6 (11.5-14.0) % Plt Count 219 (150-450) x10^3/uL MPV 11.1 H (7.5-11.0) fL Gran % 66.8 H (36.0-66.0) % Immature Gran % (Auto) 0.1 (0.00-0.4) % Nucleat RBC Rel Count 0.0 (0.00-0.1) % Eos # (Auto) 0.22 (0-0.5) x10^3/uL Immature Gran # (Auto) 0.01 (0.00-0.03) x10^3u/L Absolute Lymphs (auto) 1.80 (1.0-4.6) x10^3/uL Absolute Monos (auto) 0.45 (0.0-1.3) x10^3/uL Absolute Nucleated RBC 0.00 (0.00-0.01) x10^3u/L Lymphocytes % 23.8 L (24.0-44.0) % Monocytes % 5.9 (0.0-12.0) % Eosinophils % 2.9 (0.00-5.0) % Basophils % 0.5 (0.0-0.4) % Absolute Granulocytes 5.05 (1.4-6.9) x10^3/uL Basophils # 0.04 (0-0.4) x10^3/uL Sodium 138 (137-145) mmol/L Potassium 3.5 (3.5-5.1) mmol/L Chloride 104 (98-107) mmol/L Carbon Dioxide 30 (22-30) mmol/L Anion Gap 7.5 (5-15) MEQ/L BUN 18 (9-20) mg/dL Creatinine 0.92 (0.66-1.25) mg/dL Estimated GFR > 60.0 ML/MIN Glucose 109 H (74-106) mg/dL Calcium 9.6 (8.4-10.2) mg/dL Total Bilirubin 1.60 H (0.2-1.3) mg/dL AST 22 (17-59) U/L ALT 21 (0-50) U/L Alkaline Phosphatase 82 (38-126) U/L Creatine Kinase 92 (55-170) U/L Troponin I < 0.012 (0.000-0.034) ng/mL NT-Pro-B Natriuret Pep 112 (0-900) pg/mL Serum Total Protein 7.6 (6.3-8.2) g/dL Albumin 4.5 (3.5-5.0) g/dL Influenza Type A Ag NEGATIVE (NEGATIVE) Influenza Type B Ag NEGATIVE (NEGATIVE) RSV (PCR) NEGATIVE (Negative) SARS-CoV-2 (PCR) NEGATIVE (NEGATIVE) 08/27/22 08/28/22 08/28/22 Range/Units 21:39 04:40 04:40 WBC (4.0-10.5) x10^3/uL RBC (4.1-5.6) x10^6/uL Hgb (12.5-18.0) g/dL Hct (42-50) % MCV (78-100) fL MCH (26-32) pg MCHC (32-36) g/dL RDW (11.5-14.0) % Plt Count (150-450) x10^3/uL MPV (7.5-11.0) fL Gran % (36.0-66.0) % Immature Gran % (Auto) (0.00-0.4) % Nucleat RBC Rel Count (0.00-0.1) % Eos # (Auto) (0-0.5) x10^3/uL Immature Gran # (Auto) (0.00-0.03) x10^3u/L Absolute Lymphs (auto) (1.0-4.6) x10^3/uL Absolute Monos (auto) (0.0-1.3) x10^3/uL Absolute Nucleated RBC (0.00-0.01) x10^3u/L Lymphocytes % (24.0-44.0) % Monocytes % (0.0-12.0) % Eosinophils % (0.00-5.0) % Basophils % (0.0-0.4) % Absolute Granulocytes (1.4-6.9) x10^3/uL Basophils # (0-0.4) x10^3/uL Sodium 138 (137-145) mmol/L Potassium 3.4 L (3.5-5.1) mmol/L Chloride 105 (98-107) mmol/L Carbon Dioxide 28 (22-30) mmol/L Anion Gap 8.7 (5-15) MEQ/L BUN 21 H (9-20) mg/dL Creatinine 0.99 (0.66-1.25) mg/dL Estimated GFR > 60.0 ML/MIN Glucose 103 (74-106) mg/dL Calcium 9.2 (8.4-10.2) mg/dL Total Bilirubin 1.20 (0.2-1.3) mg/dL AST 20 (17-59) U/L ALT 18 (0-50) U/L Alkaline Phosphatase 81 (38-126) U/L Creatine Kinase (55-170) U/L Troponin I 0.013 < 0.012 (0.000-0.034) ng/mL NT-Pro-B Natriuret Pep (0-900) pg/mL Serum Total Protein 6.6 (6.3-8.2) g/dL Albumin 3.8 (3.5-5.0) g/dL Influenza Type A Ag (NEGATIVE) Influenza Type B Ag (NEGATIVE) RSV (PCR) (Negative) SARS-CoV-2 (PCR) (NEGATIVE) 08/28/22 Range/Units 05:00 WBC 9.0 (4.0-10.5) x10^3/uL RBC 4.61 (4.1-5.6) x10^6/uL Hgb 13.7 (12.5-18.0) g/dL Hct 40.4 L (42-50) % MCV 87.6 (78-100) fL MCH 29.7 (26-32) pg MCHC 33.9 (32-36) g/dL RDW 12.9 (11.5-14.0) % Plt Count 210 (150-450) x10^3/uL MPV 11.3 H (7.5-11.0) fL Gran % 63.8 (36.0-66.0) % Immature Gran % (Auto) 0.2 (0.00-0.4) % Nucleat RBC Rel Count 0.0 (0.00-0.1) % Eos # (Auto) 0.40 (0-0.5) x10^3/uL Immature Gran # (Auto) 0.02 (0.00-0.03) x10^3u/L Absolute Lymphs (auto) 2.17 (1.0-4.6) x10^3/uL Absolute Monos (auto) 0.64 (0.0-1.3) x10^3/uL Absolute Nucleated RBC 0.00 (0.00-0.01) x10^3u/L Lymphocytes % 24.1 (24.0-44.0) % Monocytes % 7.1 (0.0-12.0) % Eosinophils % 4.4 (0.00-5.0) % Basophils % 0.4 (0.0-0.4) % Absolute Granulocytes 5.74 (1.4-6.9) x10^3/uL Basophils # 0.04 (0-0.4) x10^3/uL Sodium (137-145) mmol/L Potassium (3.5-5.1) mmol/L Chloride (98-107) mmol/L Carbon Dioxide (22-30) mmol/L Anion Gap (5-15) MEQ/L BUN (9-20) mg/dL Creatinine (0.66-1.25) mg/dL Estimated GFR ML/MIN Glucose (74-106) mg/dL Calcium (8.4-10.2) mg/dL Total Bilirubin (0.2-1.3) mg/dL AST (17-59) U/L ALT (0-50) U/L Alkaline Phosphatase (38-126) U/L Creatine Kinase (55-170) U/L Troponin I (0.000-0.034) ng/mL NT-Pro-B Natriuret Pep (0-900) pg/mL Serum Total Protein (6.3-8.2) g/dL Albumin (3.5-5.0) g/dL Influenza Type A Ag (NEGATIVE) Influenza Type B Ag (NEGATIVE) RSV (PCR) (Negative) SARS-CoV-2 (PCR) (NEGATIVE) - Radiology Exams Ordered Rad Exams-Entire Visit: Radiology Procedures Category Date Time Status CHEST 1 VIEW (PORTABLE) Stat Exams 08/27/22 18:13 Completed - Procedures and Test Procedures and Tests throughout Hospitalization: Therapy Orders & Screens 08/27/22 20:59 Respiratory Therapy Assessment DAILY Comment: Diagnosis: Chest pain rule out acute [place] 08/28/22 11:36 EKG ROUTINE Comment: Diagnosis: Chest pain rule out acute [place] - Discharge Disposition: Home, Self-Care Prescriptions: New Nitroglycerin 0.4 mg Tablet [Nitrostat 0.4 MG Tablet] 0.4 mg SL DAILY P RN #25 tab PRN Reason: Chest Pain Omeprazole 40 mg PO DAILY 30 Days #30 cap PANTOPRAZOLE 40 mg Tablet [Protonix 40MG Tablet] 40 mg PO DAILY tablet Continue Lisinopril 20 mg [Zestril 20 MG] 40 mg PO DAILY Ascorbic Acid 500 mg [Vitamin C 500 MG] 1,000 mg PO DAILY Cholecalciferol (Vitamin D3) [Vitamin D3] 5,000 unit PO DAILY Discontinued Omeprazole 20 MG [Prilosec 20 mg] 20 mg PO DAILY Follow up with: BENITO BOOTH [Primary Care Provider] -
[2022-08-28 12:17] VITALS: BP 129/89; PULSE 63; O2SAT 95
== END 2022-08-28 13:45 | disposition home or self-care (01) ==
LOC: ED 16:19 → MED SURG 20:40
PROVIDERS: ADMIT Family Medicine; ATTEND Family Medicine
DX: R07.9 Chest pain, unspecified (principal); I10 Essential (primary) hypertension; K21.9 Gastro-esophageal reflux disease without esophagitis; Z79.899 Other long term (current) drug therapy; Z20.828 Contact with and (suspected) exposure to other viral communicable diseases; Z82.49 Family history of ischemic heart disease and other diseases of the circulatory system
CPT/HCPCS: 0241U; 36000; 36415; 71045; 80053; 82550; 83880; 84484; 85025; 93005; 93041; 93268; 96374; 96375; 99285; 99291; G0378; J2270; J2405; A9270-GY

== ENCOUNTER 2023-10-24 10:31 | Emergency (ER) | payer MEDICARE, OTHER ==
[2023-10-24 10:43] VITALS: TEMP 97.7
--- NOTE | 2023-10-24 11:17 | ERPHSYRPT ---
- History of Present Illness Time Seen by Provider: 10/24/23 10:45 Source: patient Exam Limitations: no limitations Patient Subjective Stated Complaint: blood in stool Triage Nursing Assessment: Pt brought self to the ER, hypertensive, denies pain, pt was on the stool this morning having a bowel movement when there was suddenly a lot of bright red blood in the stool, denies ever having an issue, pulses normal, skin n/w/d, no difficulty breathing, doesn't appear to be in any distress Physician History: Patient is a 67-year-old male presents to our emergency department for evaluation of bright red blood per rectum. Patient had a bowel movement today which was bloody. No abdominal pain. No nausea vomiting diaphoresis. No chest pain or shortness of breath. No dizziness or syncope. Patient otherwise asymptomatic. Portions of this note were created with voice recognition technology. There may be grammatical, spelling, punctuation or sound alike errors Timing/Duration: today Severity: mild Modifying Factors: Improves With: nothing Associated Symptoms: denies symptoms Allergies/Adverse Reactions: Penicillins Allergy (Verified 10/24/23 10:44) Home Medications: Ascorbic Acid 500 mg [Vitamin C 500 MG] 1,000 mg PO DAILY 06/09/18 [History] Cholecalciferol (Vitamin D3) [Vitamin D3] 5,000 unit PO DAILY 06/09/18 [History] Lisinopril 20 mg [Zestril 20 MG] 40 mg PO DAILY 06/09/18 [History] Amlodipine Besylate 5 mg [Norvasc 5 mg] 5 mg PO DAILY 10/24/23 [History] Hx Tetanus, Diphtheria Vaccination/Date Given: No (unknown) Hx Influenza Vaccination/Date Given: No Hx Pneumococcal Vaccination/Date Given: No Travel Risk - International Travel Have you traveled outside of the country in past 3 weeks: No - Coronavirus Screening Are you exhibiting any of the following symptoms?: No - Vaccine Status Have you recieved a Covid-19 vaccination: No - Review of Systems Constitutional: No Symptoms, No Fever, No Chills Eyes: No Symptoms Ears, Nose, & Throat: No Symptoms Respiratory: No Symptoms, No Cough, No Dyspnea Cardiac: No Symptoms, No Chest Pain, No Edema, No Syncope Abdominal/Gastrointestinal: No Symptoms, No Abdominal Pain, No Nausea, No Vomit ing, No Diarrhea Genitourinary Symptoms: No Symptoms, No Dysuria Musculoskeletal: No Symptoms, No Back Pain, No Neck Pain Skin: No Symptoms, No Rash Neurological: No Symptoms, No Dizziness, No Focal Weakness, No Sensory Changes Psychological: No Symptoms Endocrine: No Symptoms Hematologic/Lymphatic: No Symptoms Immunological/Allergic: No Symptoms All Other Systems: Reviewed and Negative - Past Medical History Pertinent Past Medical History: Yes ENT History: No Pertinent History Cardiac History: Hypertension Respiratory History: No Pertinent History Endocrine Medical History: No Pertinent History Musculoskeletal History: No Pertinent History GI Medical History: GERD History: No Pertinent History Psycho-Social History: No Pertinent History Male Reproductive Disorders: No Pertinent History - Past Surgical History Past Surgical History: No Cardiac: No Pertinent History Respiratory: No Pertinent History Gastrointestinal: No Pertinent History Genitourinary: No Pertinent History Musculoskeletal: No Pertinent History Male Surgical History: No Pertinent History - Social History Smoking Status: Never smoker Exposure to second hand smoke: No Drug Use: none Patient Lives Alone: No - Nursing Vital Signs Nursing Vital Signs: Initial Vital Signs Temperature 97.7 F 10/24/23 10:35 Pulse Rate 79 10/24/23 10:35 Blood Pressure 156/97 10/24/23 10:35 O2 Sat by Pulse Oximetry 97 10/24/23 10:35 Pain Scale Pain Intensity 0 - Physical Exam General Appearance: no apparent distress, alert Eye Exam: PERRL/EOMI, eyes nml inspection Ears, Nose, Throat Exam: normal ENT inspection, TMs normal, pharynx normal, moist mucous membranes Neck Exam: normal inspection, non-tender, supple, full range of motion Respiratory Exam: normal breath sounds, lungs clear, airway intact, No respiratory distress Cardiovascular Exam: regular rate/rhythm, normal heart sounds, normal peripheral pulses Gastrointestinal/Abdomen Exam: soft, normal bowel sounds, No tenderness, No mass Back Exam: normal inspection, normal range of motion, No CVA tenderness, No vertebral tenderness Extremity Exam: normal inspection, normal range of motion, pelvis stable Neurologic Exam: alert, oriented x 3, cooperative, normal mood/affect, nml cere bellar function, nml station & gait, sensation nml, No motor deficits Skin Exam: normal color, warm, dry, No rash Lymphatic Exam: No adenopathy SpO2 Interpretation: normal SpO2: 97 O2 Delivery: Room Air - Course Nursing assessment & vital signs reviewed: Yes Ordered Tests: Active Orders 24 hr Category Date Time Status IV Insertion STAT Care 10/24/23 10:57 Active CBC W DIFF Stat Lab 10/24/23 11:27 Completed CMP Stat Lab 10/24/23 11:27 Completed Occult Blood-Fecal Screen (Diagnostic) [OB-FECAL SCREEN Lab 10/24/23 11:27 Completed ] Stat UA W/RFX UR CULTURE Stat Lab 10/24/23 11:00 Completed Medication Summary Discontinued Medications Generic Name Dose Route Start Last Admin Trade Name Heather PRN Reason Stop Dose Admin Sodium Chloride 1,000 mls @ 999 mls/hr 10/24/23 10:57 10/24/23 12:27 Sodium Chloride 0.9% 1000 Ml IV 10/24/23 11:57 Infused .Q1H1M STA Infusion Sodium Chloride Confirm 10/24/23 11:23 Sodium Chloride 0.9% 1000 Ml Administered 10/24/23 11:24 Dose 1,000 mls @ ud .ROUTE .STK-MED ONE Pantoprazole Sodium 40 mg 10/24/23 15:42 Pantoprazole 40 Mg Vial IV 10/24/23 15:43 STAT ONE Lab/Rad Data: Laboratory Result Diagrams 10/24/23 11:27 10/24/23 11:27 Laboratory Results 10/24/23 10/24/23 10/24/23 Range/Units 11:27 11:27 11:27 WBC 6.9 (4.0-10.5) x10^3/uL RBC 5.26 (4.1-5.6) x10^6/uL Hgb 15.5 (12.5-18.0) g/dL Hct 46.0 (42-50) % MCV 87.5 (78-100) fL MCH 29.5 (26-32) pg MCHC 33.7 (32-36) g/dL RDW 12.5 (11.5-14.0) % Plt Count 214 (150-450) x10^3/uL MPV 10.9 (7.5-11.0) fL Gran % 63.8 (36.0-66.0) % Immature Gran % (Auto) 0.1 (0.00-0.4) % Nucleat RBC Rel Count 0.0 (0.00-0.1) % Eos # (Auto) 0.30 (0-0.5) x10^3/uL Immature Gran # (Auto) 0.01 (0.00-0.03) x10^3u/L Absolute Lymphs (auto) 1.58 (1.0-4.6) x10^3/uL Absolute Monos (auto) 0.56 (0.0-1.3) x10^3/uL Absolute Nucleated RBC 0.00 (0.00-0.01) x10^3u/L Lymphocytes % 23.0 L (24.0-44.0) % Monocytes % 8.1 (0.0-12.0) % Eosinophils % 4.4 (0.00-5.0) % Basophils % 0.6 (0.0-0.4) % Absolute Granulocytes 4.39 (1.4-6.9) x10^3/uL Basophils # 0.04 (0-0.4) x10^3/uL Sodium 140 (137-145) mmol/L Potassium 3.8 (3.5-5.1) mmol/L Chloride 104 (98-107) mmol/L Carbon Dioxide 26 (22-30) mmol/L Anion Gap 12.9 (5-15) MEQ/L BUN 19 (9-20) mg/dL Creatinine 1.00 (0.66-1.25) mg/dL Estimated GFR 83.0 ML/MIN Glucose 110 H (74-106) mg/dL Calcium 10.0 (8.4-10.2) mg/dL Total Bilirubin 1.90 H (0.2-1.3) mg/dL AST 22 (17-59) U/L ALT 24 (0-50) U/L Alkaline Phosphatase 76 (38-126) U/L Serum Total Protein 7.6 (6.3-8.2) g/dL Albumin 4.7 (3.5-5.0) g/dL Urine Color (Yellow) Urine Appearance (Clear) Urine pH (4.6-8.0) Ur Specific [place] (1.005-1.030) Urine Protein (Negative) Urine Glucose (UA) (Negative) mg/dL Urine Ketones (Negative) Urine Blood (Negative) Urine Nitrite (Negative) Urine Bilirubin (Negative) Urine Urobilinogen (0.2) mg/dL Ur Leukocyte Esterase (Negative) U Hyaline Cast (Auto) (0-2) /LPF Urine Microscopic RBC (0-5) /HPF Urine Microscopic WBC (0-5) /HPF Ur Epithelial Cells (None Seen) /HPF Urine Bacteria (None Seen) /HPF Urine Culture Reflexed (NO) Stl Occult Blood (IFOB) POSITIVE A (NEGATIVE) 10/24/23 Range/Units 11:00 WBC (4.0-10.5) x10^3/uL RBC (4.1-5.6) x10^6/uL Hgb (12.5-18.0) g/dL Hct (42-50) % MCV (78-100) fL MCH (26-32) pg MCHC (32-36) g/dL RDW (11.5-14.0) % Plt Count (150-450) x10^3/uL MPV (7.5-11.0) fL Gran % (36.0-66.0) % Immature Gran % (Auto) (0.00-0.4) % Nucleat RBC Rel Count (0.00-0.1) % Eos # (Auto) (0-0.5) x10^3/uL Immature Gran # (Auto) (0.00-0.03) x10^3u/L Absolute Lymphs (auto) (1.0-4.6) x10^3/uL Absolute Monos (auto) (0.0-1.3) x10^3/uL Absolute Nucleated RBC (0.00-0.01) x10^3u/L Lymphocytes % (24.0-44.0) % Monocytes % (0.0-12.0) % Eosinophils % (0.00-5.0) % Basophils % (0.0-0.4) % Absolute Granulocytes (1.4-6.9) x10^3/uL Basophils # (0-0.4) x10^3/uL Sodium (137-145) mmol/L Potassium (3.5-5.1) mmol/L Chloride (98-107) mmol/L Carbon Dioxide (22-30) mmol/L Anion Gap (5-15) MEQ/L BUN (9-20) mg/dL Creatinine (0.66-1.25) mg/dL Estimated GFR ML/MIN Glucose (74-106) mg/dL Calcium (8.4-10.2) mg/dL Total Bilirubin (0.2-1.3) mg/dL AST (17-59) U/L ALT (0-50) U/L Alkaline Phosphatase (38-126) U/L Serum Total Protein (6.3-8.2) g/dL Albumin (3.5-5.0) g/dL Urine Color Yellow (Yellow) Urine Appearance Clear (Clear) Urine pH 7.0 (4.6-8.0) Ur Specific [place] 1.010 (1.005-1.030) Urine Protein Negative (Negative) Urine Glucose (UA) Negative (Negative) mg/dL Urine Ketones Negative (Negative) Urine Blood Negative (Negative) Urine Nitrite Negative (Negative) Urine Bilirubin Negative (Negative) Urine Urobilinogen 1.0 A (0.2) mg/dL Ur Leukocyte Esterase Negative (Negative) U Hyaline Cast (Auto) NONE SEEN (0-2) /LPF Urine Microscopic RBC 0-2 (0-5) /HPF Urine Microscopic WBC 0-2 (0-5) /HPF Ur Epithelial Cells None Seen (None Seen) /HPF Urine Bacteria None Seen (None Seen) /HPF Urine Culture Reflexed NO (NO) Stl Occult Blood (IFOB) (NEGATIVE) - Progress Progress: improved Progress Note: Spoke to Dr. Rawls at approximately 3 PM. He suggested considering admitting the patient for serial hemoglobin and a colonoscopy in 2 days on . Patient prefers not to be admitted for 2 days just to wait for colonoscopy. I spoke to Dr. Kohler at 3:35 PM. We reviewed patient's labs. To COVID our patient's request we will discharge patient home. We arrange for patient to follow-up with Dr. Kohler tomorrow morning in his office. 10/24/23 15:38 67-year-old male presents with complaints of a bloody bowel movement. Patient is not on blood thinners. Patient had a second bowel movement today in our ED that was bloody. Vital stable. Laboratories within normal limits. Physical exam unremarkable. Laboratory workup nonremarkable. No indication for imaging studies. Patient received a dose of Protonix in our ED. A prescription for Protonix forwarded to patient's pharmacy. Will arrange for patient to follow-up with Dr. Kohler tomorrow at 2:30 PM. Patient agrees to do so. Patient advised not to drive his vehicle or operate heavy machinery until definitive care is rendered. Patient understands instructions well. Portions of this note were created with voice recognition technology. There may be grammatical, spelling, punctuation or sound alike errors Complexity problem addressed is moderate acute complicated No critical care time Complex of data reviewed and analyzed is extensive. Test ordered test reviewed for results analyzed and correlated clinically with history and physical examination. Management discussed with general surgeon and patient's primary ca re doctor. Risk of complication and or risk of morbidity/mortality of patient management is moderate. A prescription for Protonix forwarded to patient's pharmacy. Plan of care established for shared decision making. No social determinants of health present impede follow-up. Vital stable. Patient will follow-up with Dr. Kohler tomorrow at 230 PM. 10/24/23 15:47 Counseled pt/family regarding: lab results, diagnosis, need for follow-up - Departure Departure Disposition: Home Clinical Impression: GI bleed Condition: Stable Critical Care Time: No Referrals: JUANA KOHLER MD [Primary Care Provider] - Follow up/PCP as directed Additional Instructions: Please follow-up with Dr. Kohler's office tomorrow at 2:30 PM Discharge/Care Plan PHYLICIA FONSECA was seen on 10/24/23 in the Emergency Room. The patient was counseled regarding Diagnosis,Lab results, Imaging studies, need for follow up and when to return to the Emergency Room. Prescriptions given: Discharge Note I have spoken with the patient and/or caregivers. I have explained the patient's condition, diagnosis and treatment plan based on the information available to me at this time. I have answered the patient's and/or caregiver's questions and addressed any concerns. The patient and/or caregivers have as good understanding of the patient's diagnosis, condition and treatment plan as can be expected at this point. The vital signs have been stable. The patient's condition is stable and appropriate for discharge from the emergency department. The patient will pursue further outpatient evaluation with the primary care physician or other designated or consulting physician as outlined in the discha rge instructions. The patient and/or caregivers are agreeable to this plan of care and follow-up instructions have been explained in detail. The patient and/or caregivers have received these instruction. The patient/and or caregivers are aware that any significant change in condition or worsening of symptoms should prompt an immediate return to this or the closest emergency department or call 911. Prescriptions: PANTOPRAZOLE 40 mg Tablet [Protonix 40MG Tablet] 40 mg PO QAM 7 Days #7 tab
[2023-10-24] MEDS ORDERED: Sodium Chloride 0.9% 1000 ML 1,000 ML ONE (11:23)
[2023-10-24] MEDS: Sodium Chloride 0.9% 1000 ML 1,000 ML IV STA (11:24)
[2023-10-24 11:37] LABS: Absolute Neutrophil Ct (ANC) 4.39 x10^3/uL (1.4-6.9); BASOPHIL % 0.6 % (0.0-0.4); Basophil (Absolute #) 0.04 x10^3/uL (0-0.4); Eosinophil % 4.4 % (0.00-5.0); Hemoglobin 15.5 g/dL (12.5-18.0); IMMATURE GRAN # 0.01 x10^3u/L (0.00-0.03); IMMATURE GRAN % 0.1 % (0.00-0.4); Lymphocyte (Absolute #) 1.58 x10^3/uL (1.0-4.6); Mean Cell Volume 87.5 fL (78-100); Mean Corpuscular Hemoglobin 29.5 pg (26-32); Mean Corpuscular Hgb Concent. 33.7 g/dL (32-36); Mean Platelet Volume 10.9 fL (7.5-11.0); Monocyte (Absolute #) 0.56 x10^3/uL (0.0-1.3); Monocytes % 8.1 % (0.0-12.0); Neutrophil % 63.8 % (36.0-66.0); Platelet Count 214 x10^3/uL (150-450); Red Blood Count 5.26 x10^6/uL (4.1-5.6); Red Cell Distribution Width 12.5 % (11.5-14.0); White Blood Count 6.9 x10^3/uL (4.0-10.5)
[2023-10-24 11:39] LABS: IFOB TEST RESULTS POSITIVE (NEGATIVE)
[2023-10-24 11:48] LABS: ALBUMIN 4.7 g/dL (3.5-5.0); ANION GAP 12.9 MEQ/L (5-15); BILIRUBIN,TOTAL 1.9 mg/dL (0.2-1.3); Potassium 3.8 mmol/L (3.5-5.1); Total Protein 7.6 g/dL (6.3-8.2)
[2023-10-24 12:32] LABS: Appearance Clear (Clear); Bacteria None Seen /HPF (None Seen); Bilirubin Negative (Negative); Blood Negative (Negative); Epithelial Cells None Seen /HPF (None Seen); Glucose, Urine Negative (Negative); Hyaline Casts NONE SEEN /LPF (0-2); Ketones Negative (Negative); Leukocyte Esterase Negative (Negative); Nitrite Negative (Negative); Protein,Urine Dip Negative (Negative); RBC 0-2 /HPF (0-5); WBC 0-2 /HPF (0-5)
[2023-10-24 12:42] LABS: ADD URINE CULTURE? NO (NO)
[2023-10-24 15:44] VITALS: O2SAT 97
[2023-10-24] MEDS ORDERED: PROTONIX 40 MG IV IV ONE (15:51)
[2023-10-24] MEDS: PROTONIX 40 MG IV IV ONE (15:51)
[2023-10-24 16:32] VITALS: BP 138/96; PULSE 78
== END 2023-10-24 16:32 | disposition home or self-care (01) ==
LOC: ED 10:31
DX: K92.2 Gastrointestinal hemorrhage, unspecified (principal); I10 Essential (primary) hypertension; Z79.899 Other long term (current) drug therapy; Z28.310 Unvaccinated for COVID-19
CPT/HCPCS: 36000; 36415; 80053; 81001; 85025; 96360; 96374; 99284; G0328; 82274

== ENCOUNTER 2023-11-02 05:57 | Day surgery (SDC) | payer MEDICARE, OTHER ==
[2023-11-02] MEDS ORDERED: Lactated Ringers 1,000 ML IV ONE (06:11)
[2023-11-02] MEDS: Lactated Ringers 1,000 ML IV SCH (06:18)
[2023-11-02 06:39] VITALS: RESP 16; TEMP 97
[2023-11-02] MEDS ORDERED: Versed 2 MG/2 ML Injection ONE (07:20)
[2023-11-02] MEDS ORDERED: DIPRIVAN 200 MG/20 ML IV ONE ×2 (07:20→07:48)
[2023-11-02 08:49] VITALS: O2SAT 98
[2023-11-02 09:15] VITALS: BP 104/67; PULSE 67
--- NOTE | 2023-11-02 10:54 | OP ---
SURGERY DATE/TIME: 11/02/2023 0735 PREOPERATIVE DIAGNOSIS: Rectal bleeding. POSTOPERATIVE DIAGNOSES: 1) Normal EGD. 2) Colon polyps x4. 3) Diverticulosis. PROCEDURES: 1) EGD. 2) Colonoscopy. SURGEON: Pedro Aguiar M.D. ANESTHESIA: MAC by Chip Loving CRNA. ESTIMATED BLOOD LOSS: Minimal. SPECIMENS: Four hot forceps polypectomies. DESCRIPTION OF PROCEDURE: After informed written consent was obtained, the patient was taken to the endoscopy suite. He was placed in left lateral decubitus position and a bite block was inserted. Anesthesia was then titrated to desired level of consciousness and the endoscope was inserted in the posterior oropharynx. Under direct visualization the esophagus was traversed. Upon entering the stomach, there was a normal rugated gastric mucosa. The pylorus was traversed. The first and second portions of the duodenum had a normal mucosal appearance free of any lesions or defects. Upon withdrawal from the pylorus, the gastric antrum was closely inspected. There were no mucosal changes there. There were a few small scattered fundic gland polyps in the upper portion of the stomach. One herbicide service sales representative polyp was removed with cold forceps and sent for pathology testing. The remainder of the exam was unremarkable. The scope was removed and the scopes were switched. Digital rectal exam showed normal sphincter tone and no internal lesions. The scope was inserted in the rectum and sequentially the entire colonic mucosa was traversed. The level of the cecum was reached and verified with direct visualization of the ileocecal valve. Upon withdrawal there is a small sessile polyp in the proximal transverse colon near the hepatic flexure which was grasped with forceps cauterized and removed in its entirety. Upon further withdrawal, there was fairly severe diverticulosis present in the sigmoid colon for the most part, was isolated there but there was no active bleeding appreciable on exam. Prep was noted to be fair. Upon further withdrawal in the distal sigmoid colon, there were three very small sessile flat polyps, which were grasped with forceps cauterized and sent for pathology testing. Prior to withdrawal retroflexion was performed and showed no internal lesions. The scope was removed and the patient was transferred to the recovery room in good condition. Follow up in a week for pathology results.
== END 2023-11-02 09:15 | disposition home or self-care (01) ==
LOC: SDC 05:57
PROVIDERS: ATTEND Family Medicine
DX: K63.5 Polyp of colon (principal); K62.5 Hemorrhage of anus and rectum; K57.30 Diverticulosis of large intestine without perforation or abscess without bleeding
CPT/HCPCS: 93005; J2250; J2704